=== PATIENT | male | born 1935 | race Caucasian/White ===

== ENCOUNTER 2021-08-04 10:48 | Emergency (ER) | payer OTHER ==
[~2021-08-04] VITALS: Wt 97.5 kg
[~2021-08-04 10:48] MED LIST: BLOOD PRESSURE
[2021-08-04 11:44] LABS: HEMATOCRIT 32.2 % (42.0-52.0); MEAN CORPUSCULAR HGB 33.5 pg (27.0-31.0); MEAN CORPUSCULAR HGB CONC 33.5 g/dl (33.0-37.0); MEAN PLATELET VOLUME 13.4 fl (9.6-12.3); PLATELET COUNT AUTOMATED 52 10*3/uL (130-400); RED BLOOD COUNT 3.22 10*6/uL (4.50-5.90); RED CELL DISTRI WIDTH 14.8 % (0-14.5); WHITE BLOOD COUNT 2.6 10*3/uL (4.8-10.8)
[2021-08-04 11:54] LABS: ALKALINE PHOSPHATASE 40 U/L (45-117); BUN 52 mg/dl (7-24); CHLORIDE 111 mmol/L (98-107); CREATININE 2.54 mg/dL (0.70-1.30); POTASSIUM 4.9 mmol/L (3.5-5.1); SGOT/AST 25 IU/L (3-35); SGPT/ALT 41 U/L (12-78); SODIUM 138 mmol/L (136-145); TOTAL PROTEIN 6.9 gm/dL (6.4-8.2)
[2021-08-04 11:56] LABS: TROPONIN I < 0.015 ng/ml (<0.045)
[2021-08-04 12:04] LABS: OVALOCYTES FEW; PLATELET SUFFICIENCY LOW (NORMAL); SCHISTOCYTES FEW; TOTAL CELLS COUNTED 100 #CELLS
== END 2021-08-04 12:26 | disposition left against medical advice (07) ==
LOC: ED 10:48
PROVIDERS: Nurse Practitioner Family
DX: U07.1 COVID-19 (principal)